=== PATIENT | female | born 1965 | race Caucasian/White ===

== ENCOUNTER 2023-06-23 00:22 | Emergency (ER) | payer BC ==
[~2023-06-23] VITALS: Ht 154.9 cm; Wt 61.0 kg
[~2023-06-23 00:22] MED LIST: NO CURRENT MEDS; TAM75CAP OR
[2023-06-23 00:31] VITALS: BP 132/83
[2023-06-23 00:45] VITALS: BP 135/92
[2023-06-23 01:00] VITALS: BP 140/96
[2023-06-23 01:15] VITALS: BP 141/103
[2023-06-23 01:30] VITALS: BP 142/97
[2023-06-23 01:40] VITALS: BP 142/97
== END 2023-06-23 01:40 | disposition short-term general hospital (02) | DRG 125 ==
LOC: ED 00:22
DX: H33.21 Serous retinal detachment, right eye (principal); W20.8XXA Other cause of strike by thrown, projected or falling object, initial encounter; Y93.89 Activity, other specified; Y92.009 Unspecified place in unspecified non-institutional (private) residence as the place of occurrence of the external cause